=== PATIENT | male | born 1990 | race African-American/Black ===

== ENCOUNTER 2017-08-10 20:25 | Inpatient (IN) | payer SELFPAY ==
[2017-08-10] MEDS ORDERED: Fentanyl 100 MCG/2 ML VIAL ONE ×2 (20:37→22:16)
[2017-08-10 21:51] LABS: Acetaminophen Less than 6.0 mcg/mL (10.0-30.0); Salicylate Less than 8.0 mg/dL (15.0-30.0)
[2017-08-10 21:53] LABS: Bilirubin Negative (Negative); Blood, Urine Negative (Negative); Glucose, Urine (Dipstick) Negative (Negative); Ketone, Urine Negative (Negative); Nitrite Negative (Negative); Protein, Urine (Dipstick) Negative (Neg-Trace)
[2017-08-10 22:15] LABS: Amphetamine Detected (NotDetected); Methadone Not Detected (NotDetected); Methamphetamine Detected (NotDetected)
[2017-08-10] MEDS ORDERED: Sodium Chloride 0.45% 1,000 ML IV SCH (23:45)
[2017-08-11] MEDS: Fentanyl 100 MCG/2 ML VIAL SLOW IVP PRN ×4 (01:00→23:17)
[2017-08-11 05:11] VITALS: BMI 20.7
[2017-08-11] MEDS ORDERED: diphenhydrAMINE 50 MG/ML VIAL IVP PRN (06:54)
[2017-08-11] MEDS ORDERED: Sodium Chloride 0.65% Nasal 44 ML BOT EA NARE PRN (06:54)
[2017-08-11] MEDS ORDERED: Fleet Enema 133 ML BOT PR PRN (06:54)
[2017-08-11] MEDS ORDERED: Acetaminophen 650 MG Suppository PR PRN (06:54)
[2017-08-11] MEDS ORDERED: Ondansetron HCl/PF 4 MG/2 ML Vial IVP PRN (06:54)
[2017-08-11] MEDS ORDERED: hydrALAZINE 20 MG/ML VIAL SLOW IVP PRN (06:54)
[2017-08-11] MEDS ORDERED: Bisacodyl 10 MG SUPP PR PRN (06:54)
[2017-08-11] MEDS ORDERED: Artificial Tears 18 DROP/0.9 ML EA EYE PRN (06:54)
[2017-08-11] MEDS ORDERED: Eucerin (Mineral Oil/Petrolatum,White) 30 gm Jar TOP PRN (06:54)
[2017-08-11] MEDS ORDERED: Lorazepam 2 MG/ML VIAL SLOW IVP PRN (06:55)
[2017-08-11] MEDS ORDERED: Lidocaine 1% PF 5 ML VIAL ONE (09:40)
[2017-08-11] MEDS ORDERED: Propofol 200 MG/20 ML VIAL ONE (09:40)
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
[2017-08-11] MEDS ORDERED: [UNRECOGNIZED DRUG - MIXTURE] SSP SCH ×4 (13:50→14:00)
[2017-08-11] MEDS: Dextrose 5 % And 0.9 % NaCl 1,000 ML IV SCH ×3 (14:09→22:50)
[2017-08-11] MEDS: Pantoprazole 40 MG VIAL IVP SCH ×2 (14:21→19:58)
[2017-08-11] MEDS ORDERED: Lidocaine Viscous Sol 2% 15 ml UD Cup SSP SCH (16:00)
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
[2017-08-11] MEDS: [UNRECOGNIZED DRUG - MIXTURE] SSP SCH ×2 (20:03)
[2017-08-12] MEDS: [UNRECOGNIZED DRUG - MIXTURE] SSP SCH ×8 (00:07→16:02)
[2017-08-12] MEDS: Fentanyl 100 MCG/2 ML VIAL SLOW IVP PRN ×2 (04:15→15:12)
[2017-08-12 05:17] LABS: Anion Gap 11 mmol/L (10-20); BUN (Urea Nitrogen) 8 mg/dL (8.9-20.6); Calc. Creatinine Clearance 124 mL/min (70-130); Carbon Dioxide 23 mmol/L (22-29); Chloride 99 mmol/L (98-107); Estimated GFR-MDRD Greater than 90
[2017-08-12 05:33] LABS: Band 6 % (5-11); Hematocrit 44.7 % (42.0-52.0); Mean Platelet Volume 7.5 fL (7.4-10.4); Neutrophil 80 % (42-75); Red Blood Cell (RBC) Count 4.74 mill/uL (4.70-6.10); White Blood Cell (WBC) Count 18.9 thou/uL (4.8-10.8)
[2017-08-12] MEDS: Dextrose 5 % And 0.9 % NaCl 1,000 ML IV SCH ×3 (06:38→19:53)
[2017-08-12] MEDS: Pantoprazole 40 MG VIAL IVP SCH ×2 (08:22→19:52)
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
[2017-08-13] MEDS: [UNRECOGNIZED DRUG - MIXTURE] SSP SCH ×10 (01:04→22:59)
[2017-08-13 05:27] LABS: #Lymphocytes 2.1 thou/uL (1.20-3.40); #Neutrophils 11.5 thou/uL (1.40-6.50); %Basophils 0.1 % (0.0-1.0); %Eosinophils 0.3 % (0.0-10.0); Hematocrit 41.7 % (42.0-52.0); Mean Platelet Volume 7.4 fL (7.4-10.4); Red Blood Cell (RBC) Count 4.44 mill/uL (4.70-6.10); White Blood Cell (WBC) Count 14.6 thou/uL (4.8-10.8)
[2017-08-13 05:51] LABS: ALT (SGPT) 12 U/L (8-55); AST (SGOT) 11 U/L (5-34); Alkaline Phosphatase 78 U/L (40-150); Anion Gap 9 mmol/L (10-20); BUN (Urea Nitrogen) 5 mg/dL (8.9-20.6); Bilirubin, Total 0.8 mg/dL (0.2-1.2); Calc. Creatinine Clearance 122 mL/min (70-130); Calcium 8.5 mg/dL (7.8-10.44); Carbon Dioxide 24 mmol/L (22-29); Chloride 105 mmol/L (98-107); Estimated GFR-MDRD Greater than 90; Globulin 2.9 g/dL (2.4-3.5); Protein, Total 6.3 g/dL (6.0-8.3)
[2017-08-13] MEDS: Dextrose 5 % And 0.9 % NaCl 1,000 ML IV SCH ×3 (06:19→15:03)
--- NOTE | 2017-08-13 07:28 | PRG ---
DATE OF SERVICE: 08/12/2017 HOSPITAL VISIT NOTE SUBJECTIVE: This is a 27-year-old -[place] male hospitalized with painful swallowing and sev ere retrosternal discomfort. Apparently, he had just noticed sepsis and started having burning in th e throat and also the retrosternal area. An EGD done yesterday revealed diffuse ulcerative esophagit is in the upper esophagus and also the GE junction. The stomach and duodenum appeared normal. He al so has had surgery. He is on IV PPI and also supposedly getting viscous Xylocaine with Mylanta every 6 hours. He continues to complain of retrosternal discomfort. No other complaints of chest p ain and no pain medicine and appears comfortable in no distress. LABORATORY DATA: WBC 18,900, hemoglobin 13.8. Sodium is 129, potassium normal at 3.7, BUN and creat inine is normal. PHYSICAL EXAMINATION: VITAL SIGNS: Temperature is 99.7 degrees Fahrenheit, pulse is 107, blood pressure 143/92. NECK: Supple. CARDIOVASCULAR SYSTEM: Within normal limits. ABDOMEN: Soft to palpate. Abdomen is nontender. CLINICAL IMPRESSION: Severe ulcerative esophagitis, most likely ingestion of some unknown acidic sub stance. . RECOMMENDATIONS: 1. Continue PPI. 2. Continue viscous Xylocaine and Mylanta combination every 6 hours. 3. Advance diet to mechanical soft diet. 4. From a GI standpoint, there is nothing more to add.
[2017-08-13] MEDS: Pantoprazole 40 MG VIAL IVP SCH ×2 (09:35→20:06)
[2017-08-13] MEDS: Fentanyl 100 MCG/2 ML VIAL SLOW IVP PRN (09:51)
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
[2017-08-13] MEDS ORDERED: traMADol HCl 50 MG TAB PO PRN (12:28)
[2017-08-14] MEDS: Dextrose 5 % And 0.9 % NaCl 1,000 ML IV SCH (04:05)
[2017-08-14] MEDS: [UNRECOGNIZED DRUG - MIXTURE] SSP SCH ×2 (05:37)
[2017-08-14 05:43] VITALS: TEMP 98.6
[2017-08-14 07:38] LABS: #Eosinphils 0.1 thou/uL (0.0-0.7); #Monocytes 0.7 thou/uL (0.11-0.59); #Neutrophils 7.4 thou/uL (1.40-6.50); %Basophils 0.2 % (0.0-1.0); %Lymphocytes 19.3 % (21.0-51.0); %Monocytes 6.9 % (0.0-10.0); Hematocrit 38.8 % (42.0-52.0); Mean Platelet Volume 6.9 fL (7.4-10.4); Red Blood Cell (RBC) Count 4.16 mill/uL (4.70-6.10); White Blood Cell (WBC) Count 10.2 thou/uL (4.8-10.8)
[2017-08-14 07:47] LABS: Anion Gap 9 mmol/L (10-20); BUN (Urea Nitrogen) 6 mg/dL (8.9-20.6); Calc. Creatinine Clearance 130 mL/min (70-130); Carbon Dioxide 25 mmol/L (22-29); Chloride 106 mmol/L (98-107); Estimated GFR-MDRD Greater than 90
[2017-08-14 08:45] VITALS: BP 148/89
[2017-08-14] MEDS: Pantoprazole 40 MG VIAL IVP SCH (08:54)
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
== END 2017-08-14 12:35 | disposition home or self-care (01) | DRG 918 ==
LOC: ERS 20:25 → 2SW 22:20 → OBSVTOIN 22:20 → SURG B 08-12 11:02
PROVIDERS: ADMIT Internal Medicine; ATTEND Internal Medicine
PROC: 0DB58ZX Excision of Esophagus, Via Natural or Artificial Opening Endoscopic, Diagnostic (ICD-10-PCS; principal; 2017-08-11)
DX: T54.2X1A Toxic effect of corrosive acids and acid-like substances, accidental (unintentional), initial encounter (principal); E87.1 Hypo-osmolality and hyponatremia; K22.10 Ulcer of esophagus without bleeding; R13.10 Dysphagia, unspecified; E86.0 Dehydration; K13.70 Unspecified lesions of oral mucosa; K44.9 Diaphragmatic hernia without obstruction or gangrene; D72.829 Elevated white blood cell count, unspecified; D72.825 Bandemia; J39.2 Other diseases of pharynx; F12.10 Cannabis abuse, uncomplicated; F19.10 Other psychoactive substance abuse, uncomplicated; F17.210 Nicotine dependence, cigarettes, uncomplicated
CPT/HCPCS: 36415; 80048; 80053; 80306; 80307; 81003; 83735; 85025; 88305; 88312; 88313; 96374; 96376; C9113; J2001; J2060; J2704; J3010